=== PATIENT | male | born 1955 | race African-American/Black ===

== ENCOUNTER 2018-05-20 14:44 | Inpatient (IN) | payer OTHER ==
[2018-05-20 16:07] VITALS: BMI 21.2
--- NOTE | 2018-05-20 17:01 | HP ---
"CIWA Score Nausea/Vomitin-Mild Nausea/No Vomiting Muscle Tremors: 1-None Visible, but [place] Anxiety: 1-Mildly Anxious Agitation: 4-Moderately Restless Paroxysmal Sweats: 3 (Facial moisture) Orientation: 1-Uncertain about Date Tacttile Disturbances: 0-None Auditory Disturbances: 0-None Visual Disturbances: 0-None Headache: 0-None Present CIWA-Ar Total Score: 11 - Admission Criteria OASAS Guidelines: Admission for Medically Managed Detox: Requires at least one of the followin. CIWA greater than 12 2. Seizures within the past 24 hours 3. Delirium tremens within the past 24 hours 4. Hallucinations within the past 24 hours 5. Acute intervention needed for co occurring medical disorder 6. Acute intervention needed for co occurring psychiatric disorder 7. Severe withdrawal that cannot be handled at a lower level of care (continued vomiting, continued diarrhea, abnormal vital signs) requiring intravenous medication and/or fluids 8. Patient presents the following: Acute intervention needed for co-occurring med or psych disorder (Patient w/ B/P: 150/107 and HR: 106) Admission Criteria Met: Admission criteria met Admission ROS [facility] Chief Complaint: Here for alcohol withdrawal. Allergies/Adverse Reactions: Allergies Allergy/AdvReac Type Severity Reaction Status Date / Time No Known Allergies Allergy Verified 05/20/18 18:15 History of Present Illness: Here for alcohol detox. States I want to strop alcohol and cigarettes. States started drinking at age 14. Drinks approx 2 pints rum daily. last drink last night. States drinks 4 - 5 times/week. Nicotine use began at age 14. Currently 1/2 PPD. Denies other substance use. One blackout Apr, 2018 Denies hx seizures. Longest length of sobriety 1 month. Cough x 7 months. States phlegm - usually clear. Denies SOB. Hx: HIV infection. Denies medication management use for many months. Denies other significant PMH. States saw PCP 3 months ago and denies Hx HTN or heart issues. Search Terms: Jordin Sainz, 1955 Search Date: 05/20/2018 04:56:03 PM The Drug Utilization Report below displays all of the controlled substance prescriptions, if any, that your patient has filled in the last twelve months. The information displayed on this report is compiled from pharmacy submissions to the Department, and accurately reflects the information as submitted by the pharmacies. This report was requested by: Krystle Betts | Reference #: [id number] There are no results for the search terms that you entered. Exam Limitations: No Limitations - Ebola screening Have you traveled outside of the country in the last 21 days: No Have you had contact with anyone from an Ebola affected area: No Have you been sick,other than usual withdrawal symptoms: No Do you have a fever: No - Review of Systems Constitutional: Diaphoresis, Unexplained wgt Loss (Due to drinking instead of eating) EENT: reports: Blurred Vision (Reading glasses), Dental Problems (Missing teeth. Chews and swallos ok.) Respiratory: reports: SOB with Exertion (Climbing stairs.) Cardiac: reports: No Symptoms Reported GI: reports: Diarrhea (1 episoder earlier today.), Nausea, Indigestion (Occ acid reflux) : reports: No Symptoms Reported Musculoskeletal: reports: No Symptoms Reported Integumentary: reports: No Symptoms Reported Neuro: reports: Numbness (Numbness in fingers states r/t alcohol use) Endocrine: reports: Increased Thirst Hematology: reports: No Symptoms Reported Psychiatric: reports: Judgement Intact, Agitated, other (Unsure of day of week) Patient History - Patient Medical History Hx Anemia: No Hx Asthma: No Hx Chronic Obstructive Pulmonary Disease (COPD): No Hx Cancer: No Hx Cardiac Disorders: No Hx Congestive Heart Failure: No Hx Hypertension: No Hx Hypercholesterolemia: No Hx Pacemaker: No HX Cerebrovascular Accident: No Hx Seizures: No Hx Dementia: No Hx Diabetes: No Hx Gastrointestinal Disorders: No Hx Liver Disease: No Hx Genitourinary Disorders: No Hx Sexually Transmitted Disorders: No Hx Renal Disease (ESRD): No Hx Thyroid Disease: No Hx Human Immunodeficiency Virus (HIV): Yes Hx Hepatitis C: No Hx Depression: Yes Hx Suicide Attempt: No Hx Bipolar Disorder: No Hx Schizophrenia: No - Patient Surgical History Past Surgical History: No Hx Neurologic Surgery: No Hx Cataract Extraction: No Hx Cardiac Surgery: No Hx Lung Surgery: No Hx Breast Surgery: No Hx Breast Biopsy: No Hx Abdominal Surgery: No Hx Appendectomy: No Hx Cholecystectomy: No Hx Genitourinary Surgery: No Hx Section: No Hx Orthopedic Surgery: No Anesthesia Reaction: No - PPD History Previous Implant?: Yes Documented Results: Negative w/proof Implanted On Prior R Admission?: Yes Date: 01/16/15 PPD to be Administered?: Yes - Smoking Cessation Smoking history: Current every day smoker Have you smoked in the past 12 months: Yes Aproximately how many cigarettes per day: 10 Hx Chewing Tobacco Use: No Initiated information on smoking cessation: Yes 'Breaking Loose' booklet given: 05/20/18 - Substance & Tx. History Hx Alcohol Use: Yes Hx Substance Use: Yes Substance Use Type: Alcohol Hx Substance Use Treatment: Yes (detox, ) - Substances Abused Alcohol Route: Oral Frequency: Daily Amount used: 1 PINDelmi MUNOZ Age of first use: 14 Date of Last Use: 05/19/18 Admission Physical Exam BHS - Vital Signs Vital Signs: Vital Signs - 24 hr 05/20/18 16:00 Temperature 99.2 F Pulse Rate 106 H Respiratory 18 Rate Blood Pressure 150/107 H - Physical General Appearance: Yes: Appropriately Dressed, Mild Distress, Sweating (Facial moisture), Anxious HEENTM: Yes: EOMI, Hearing grossly Normal, Normal Voice, JIGNESH, Pharynx Normal Respiratory: Yes: Lungs Clear, Normal Breath Sounds, No Respiratory Distress, Other (Cough productive of greenish phlegm) Neck: Yes: No masses,lesions,Nodules, Supple Breast: Yes: Breast Exam Deferred Cardiology: Yes: Regular Rhythm, S1, S2 (Split S-2), Tachycardia Abdominal: Yes: Non Tender, Flat, Soft Genitourinary: Yes: Within Normal Limits Back: Yes: Normal Inspection Musculoskeletal: Yes: full range of Motion, Gait Steady Extremities: Yes: Normal Capillary Refill, Normal Range of Motion, Non-Tender, Tremors (Minimal tremors with arm extension) Neurological: Yes: business relations manager II-XII NML intact, Alert, Motor Strength 5/5, Normal Mood /Affect, Normal Response Integumentary: Yes: Normal Color, Dry (Generalized dry skin, except for facial moisture), Warm, Diaphoresis (Facial moisture) Lymphatic: Yes: Within Normal Limits - Diagnostic (1) Alcohol dependence with uncomplicated withdrawal Current Visit: Yes Status: Acute (2) HIV (human immunodeficiency virus infection) Current Visit: Yes Status: Chronic Qualifiers: HIV symptom status: unspecified Qualified Code(s): B20 - Human immunodeficiency virus [HIV] disease Comment: Not on medications (3) Nicotine dependence Current Visit: Yes Status: Chronic Qualifiers: Nicotine product type: cigarettes Substance use status: uncomplicated Qualified Code(s): F17.210 - Nicotine dependence, cigarettes, uncomplicated (4) Cough Current Visit: Yes Status: Chronic (5) Elevated blood pressure reading in office without diagnosis of hypertension Current Visit: Yes Status: Acute (6) Tachycardia Current Visit: Yes Status: Acute Cleared for Admission S - Detox or Rehab [facility] Level of Care: Medically Managed Detox Regimen/Protocol: Librium BHS Breath Alcohol Content Breath Alcohol Content: 0 Urine Drug Screen - Results Drug Screen Negative: Yes Inpatient Rehab Admission - Rehab Decision to Admit Inpatient rehab admission?: No"
[2018-05-20] MEDS ORDERED: ACETAMINOPHEN 325 MG TABLET (FP) PO PRN (17:33)
[2018-05-20] MEDS ORDERED: MENTHOL/PHENOL 1 EACH UD MM PRN (17:33)
[2018-05-20] MEDS ORDERED: MAG HYDROX/AL HYDROX/SIMETH 30 ML UNIT-DOSE CUP PO PRN (17:33)
[2018-05-20] MEDS ORDERED: LOPERAMIDE HCL 2 MG CAPSULE PO PRN (17:33)
[2018-05-20] MEDS ORDERED: IBUPROFEN 400 MG TABLET (FP) PO PRN (17:33)
[2018-05-20] MEDS ORDERED: MAGNESIUM CITRATE 300 ML BOTTLE PO PRN (17:33)
[2018-05-20] MEDS ORDERED: MAGNESIUM HYDROX 2400MG/30ML ORAL SUSPENSION 30 ML CUP PO PRN (17:33)
[2018-05-20] MEDS ORDERED: chlordiazePOXIDE HCL 25 MG CAPSULE PO PRN (17:33)
[2018-05-20] MEDS ORDERED: P-EPHED 60MG/TRIPROLIDI 2.5MG TABLET PO PRN (17:33)
[2018-05-20] MEDS ORDERED: chlordiazePOXIDE HCL 10 MG CAPSULE PO PRN (19:37)
[2018-05-20] MEDS: NICOTINE 14 MG/24 HOURS TOPICAL PATCH TD SCH (19:44)
[2018-05-20] MEDS: guaiFENesin 200 MG/10 ML 10 ML UNIT-DOSE CUPS PO SCH ×2 (19:50→23:07)
[2018-05-20] MEDS: chlordiazePOXIDE HCL 25 MG CAPSULE PO SCH (22:17)
[2018-05-20] MEDS: THIAMINE HCL 100 MG TABLET (FP) PO SCH (22:17)
[2018-05-20] MEDS: MELATONIN 5 MG TABLETS PO PRN (22:18)
[2018-05-21] MEDS: chlordiazePOXIDE HCL 25 MG CAPSULE PO SCH ×3 (05:53→17:28)
[2018-05-21] MEDS: guaiFENesin 200 MG/10 ML 10 ML UNIT-DOSE CUPS PO SCH ×4 (05:54→22:57)
[2018-05-21] MEDS: NICOTINE 14 MG/24 HOURS TOPICAL PATCH TD SCH (10:11)
[2018-05-21] MEDS: PRENATAL VITAMINS W/ FOLIC ACID TABLET (FP) PO SCH (10:12)
[2018-05-21 11:39] LABS: ALBUMIN 3.5 g/dl (3.4-5.0); ALK PHOS 97 U/L (45-117); ANION GAP 9 MMOL/L (8-16); BILIRUBIN,TOTAL 1.2 mg/dL (0.2-1); BLOOD UREA NITROGEN 8 mg/dL (7-18); CALCIUM 9.4 mg/dL (8.5-10.1); CHLORIDE 98 mmol/L (98-107); CO2 30 mmol/L (21-32); CREATININE 1.1 mg/dL (0.55-1.3); GLUCOSE,RANDOM 148 mg/dL (74-106); POTASSIUM 3.8 mmol/L (3.5-5.1); SGOT/AST 50 U/L (15-37); SGPT/ALT 41 U/L (13-61); SODIUM 137 mmol/L (136-145); TOT PROT 8.8 g/dl (6.4-8.2)
[2018-05-21 11:47] LABS: HEMATOCRIT 37.7 % (35.4-49); HEMOGLOBIN 12.7 GM/dL (11.7-16.9); MCH 29.6 pg (25.7-33.7); MCHC 33.7 g/dl (32.0-35.9); MEAN CELL VOLUME 87.8 fl (80-96); MEAN PLT VOLUME 7.4 fl (7.5-11.1); PLATELET COUNT 180 K/MM3 (134-434); RBC 4.29 M/mm3 (4.00-5.60); RDW 15.5 % (11.9-15.9); WHITE BLOOD COUNT 5.3 K/mm3 (4.0-10.0)
[2018-05-21] MEDS ORDERED: BACLOFEN 10 MG TABLET (FP) PO PRN ×2 (14:10→14:38)
--- NOTE | 2018-05-21 14:44 | EKG ---
Test Reason : Blood Pressure : / mmHG Vent. Rate : 100 BPM Atrial Rate : 100 BPM P-R Int : 132 ms QRS Dur : 082 ms QT Int : 344 ms P-R-T Axes : 077 026 076 degrees QTc Int : 443 ms POOR DATA QUALITY, INTERPRETATION MAY BE ADVERSELY AFFECTED NORMAL SINUS RHYTHM NORMAL ECG NO PREVIOUS ECGS AVAILABLE Confirmed by Gordon Lomas MD ([id number]) on 05/21/2018 2:44:02 PM Referred By: Confirmed By:Gordon Lomas MD
--- NOTE | 2018-05-21 15:07 | PN ---
S CIWA - CIWA Score Nausea/Vomitin Muscle Tremors: 2 Anxiety: 2 Agitation: 0-Normal Activity Paroxysmal Sweats: 3 Orientation: 0-Oriented Tacttile Disturbances: 2-Mild Itch/Numbness/Burn Auditory Disturbances: 0-None Visual Disturbances: 2-Mild Sensitivity Headache: 0-None Present CIWA-Ar Total Score: 14 BHS Progress Note (SOAP) Subjective: Nausea, Sweating, Body Aches, Muscle Cramps. Objective: PATIENT A & O X 3, OBSERVED AMBULATING ON UNIT. IN NO ACUTE DISTRESS. 05/21/18 15:07 Vital Signs Temperature 98.4 F 05/21/18 13:36 Pulse Rate 120 H 05/21/18 13:36 Respiratory Rate 18 05/21/18 13:36 Blood Pressure 106/74 05/21/18 13:36 O2 Sat by Pulse Oximetry (%) Laboratory Tests 05/21/18 05/21/18 05/21/18 07:40 07:40 07:40 WBC 5.3 RBC 4.29 Hgb 12.7 Hct 37.7 MCV 87.8 MCH 29.6 MCHC 33.7 RDW 15.5 Plt Count 180 MPV 7.4 L Sodium 137 Potassium 3.8 Chloride 98 Carbon Dioxide 30 Anion Gap 9 BUN 8 Creatinine 1.1 Creat Clearance w eGFR > 60 Random Glucose 148 H Calcium 9.4 Total Bilirubin 1.2 H AST 50 H ALT 41 Alkaline Phosphatase 97 Total Protein 8.8 H Albumin 3.5 RPR Titer Nonreactive LABS NOTED. Assessment: 05/21/18 15:08 WITHDRAWAL SYMPTOMS. Plan: CONTINUE DETOX. INCREASE DAILY PO FLUID INTAKE. PRN BACLOFEN PO FOR BODY ACHES / MUSCLE SPASMS. BGM ACBK FOR ELEVATED ADMISSION GLUCOSE LEVEL.
[2018-05-21] MEDS: chlordiazePOXIDE 5 MG CAPSULE PO SCH (22:40)
[2018-05-21] MEDS: THIAMINE HCL 100 MG TABLET (FP) PO SCH (22:40)
[2018-05-21] MEDS: MELATONIN 5 MG TABLETS PO PRN (22:41)
[2018-05-22] MEDS: chlordiazePOXIDE 5 MG CAPSULE PO SCH ×3 (06:03→17:24)
[2018-05-22] MEDS: guaiFENesin 200 MG/10 ML 10 ML UNIT-DOSE CUPS PO SCH ×4 (06:05→22:59)
[2018-05-22] MEDS: PRENATAL VITAMINS W/ FOLIC ACID TABLET (FP) PO SCH (10:06)
[2018-05-22] MEDS: NICOTINE 14 MG/24 HOURS TOPICAL PATCH TD SCH (10:07)
--- NOTE | 2018-05-22 11:39 | PN ---
S CIWA - CIWA Score Nausea/Vomitin-No Nausea/No Vomiting Muscle Tremors: 3 Anxiety: 1-Mildly Anxious Agitation: 2 Paroxysmal Sweats: 1-Minimal Palms Moist Orientation: 0-Oriented Tacttile Disturbances: 0-None Auditory Disturbances: 0-None Visual Disturbances: 0-None Headache: 2-Mild CIWA-Ar Total Score: 9 S Progress Note (SOAP) Subjective: tremor sweating restlessness Objective: 05/22/18 11:45 Vital Signs Temperature 98.7 F 05/22/18 09:33 Pulse Rate 109 H 05/22/18 09:33 Respiratory Rate 20 05/22/18 09:33 Blood Pressure 119/84 05/22/18 09:33 O2 Sat by Pulse Oximetry (%) Laboratory Last Values WBC 5.3 K/mm3 (4.0-10.0) 05/21/18 07:40 RBC 4.29 M/mm3 (4.00-5.60) 05/21/18 07:40 Hgb 12.7 GM/dL (11.7-16.9) 05/21/18 07:40 Hct 37.7 % (35.4-49) 05/21/18 07:40 MCV 87.8 fl (80-96) 05/21/18 07:40 MCH 29.6 pg (25.7-33.7) 05/21/18 07:40 MCHC 33.7 g/dl (32.0-35.9) 05/21/18 07:40 RDW 15.5 % (11.9-15.9) 05/21/18 07:40 Plt Count 180 K/MM3 (134-434) 05/21/18 07:40 MPV 7.4 fl (7.5-11.1) L 05/21/18 07:40 Sodium 137 mmol/L (136-145) 05/21/18 07:40 Potassium 3.8 mmol/L (3.5-5.1) 05/21/18 07:40 Chloride 98 mmol/L (98-107) 05/21/18 07:40 Carbon Dioxide 30 mmol/L (21-32) 05/21/18 07:40 Anion Gap 9 MMOL/L (8-16) 05/21/18 07:40 BUN 8 mg/dL (7-18) 05/21/18 07:40 Creatinine 1.1 mg/dL (0.55-1.3) 05/21/18 07:40 Creat Clearance w eGFR > 60 (>60) 05/21/18 07:40 POC Glucometer 121 UNITS (80-120) 05/22/18 06:26 Random Glucose 148 mg/dL (74-106) H 05/21/18 07:40 Calcium 9.4 mg/dL (8.5-10.1) 05/21/18 07:40 Total Bilirubin 1.2 mg/dL (0.2-1) H 05/21/18 07:40 AST 50 U/L (15-37) H 05/21/18 07:40 ALT 41 U/L (13-61) 05/21/18 07:40 Alkaline Phosphatase 97 U/L (45-117) 05/21/18 07:40 Total Protein 8.8 g/dl (6.4-8.2) H 05/21/18 07:40 Albumin 3.5 g/dl (3.4-5.0) 05/21/18 07:40 RPR Titer Nonreactive (NONREACTIVE) 05/21/18 07:40 lab noted Assessment: 05/22/18 11:46 withdrawal sx Plan: continue detox
[2018-05-22] MEDS: chlordiazePOXIDE HCL 10 MG CAPSULE PO SCH (22:17)
[2018-05-22] MEDS: THIAMINE HCL 100 MG TABLET (FP) PO SCH (22:17)
[2018-05-22] MEDS: MELATONIN 5 MG TABLETS PO PRN (22:18)
[2018-05-23] MEDS: chlordiazePOXIDE HCL 10 MG CAPSULE PO SCH ×3 (06:06→18:03)
[2018-05-23] MEDS: guaiFENesin 200 MG/10 ML 10 ML UNIT-DOSE CUPS PO SCH ×2 (06:33→12:47)
[2018-05-23] MEDS: PRENATAL VITAMINS W/ FOLIC ACID TABLET (FP) PO SCH (10:20)
[2018-05-23] MEDS: NICOTINE 14 MG/24 HOURS TOPICAL PATCH TD SCH (10:20)
--- NOTE | 2018-05-23 10:54 | PN ---
S CIWA - CIWA Score Nausea/Vomitin-Mild Nausea/No Vomiting Muscle Tremors: 1-None Visible, but [place] Anxiety: 1-Mildly Anxious Agitation: 1-Slight > Activity Paroxysmal Sweats: 1-Minimal Palms Moist Orientation: 0-Oriented Tacttile Disturbances: 0-None Auditory Disturbances: 0-None Visual Disturbances: 0-None Headache: 1-Very Mild CIWA-Ar Total Score: 6 BHS Progress Note (SOAP) Subjective: feeling better less tremor mild sweating sleep better at night Objective: 05/23/18 10:55 Vital Signs Temperature 98.8 F 05/23/18 09:33 Pulse Rate 120 H 05/23/18 09:33 Respiratory Rate 20 05/23/18 09:33 Blood Pressure 132/86 05/23/18 09:33 O2 Sat by Pulse Oximetry (%) Laboratory Last Values WBC 5.3 K/mm3 (4.0-10.0) 05/21/18 07:40 RBC 4.29 M/mm3 (4.00-5.60) 05/21/18 07:40 Hgb 12.7 GM/dL (11.7-16.9) 05/21/18 07:40 Hct 37.7 % (35.4-49) 05/21/18 07:40 MCV 87.8 fl (80-96) 05/21/18 07:40 MCH 29.6 pg (25.7-33.7) 05/21/18 07:40 MCHC 33.7 g/dl (32.0-35.9) 05/21/18 07:40 RDW 15.5 % (11.9-15.9) 05/21/18 07:40 Plt Count 180 K/MM3 (134-434) 05/21/18 07:40 MPV 7.4 fl (7.5-11.1) L 05/21/18 07:40 Sodium 137 mmol/L (136-145) 05/21/18 07:40 Potassium 3.8 mmol/L (3.5-5.1) 05/21/18 07:40 Chloride 98 mmol/L (98-107) 05/21/18 07:40 Carbon Dioxide 30 mmol/L (21-32) 05/21/18 07:40 Anion Gap 9 MMOL/L (8-16) 05/21/18 07:40 BUN 8 mg/dL (7-18) 05/21/18 07:40 Creatinine 1.1 mg/dL (0.55-1.3) 05/21/18 07:40 Creat Clearance w eGFR > 60 (>60) 05/21/18 07:40 POC Glucometer 98 UNITS (80-120) 05/23/18 06:05 Random Glucose 148 mg/dL (74-106) H 05/21/18 07:40 Calcium 9.4 mg/dL (8.5-10.1) 05/21/18 07:40 Total Bilirubin 1.2 mg/dL (0.2-1) H 05/21/18 07:40 AST 50 U/L (15-37) H 05/21/18 07:40 ALT 41 U/L (13-61) 05/21/18 07:40 Alkaline Phosphatase 97 U/L (45-117) 05/21/18 07:40 Total Protein 8.8 g/dl (6.4-8.2) H 05/21/18 07:40 Albumin 3.5 g/dl (3.4-5.0) 05/21/18 07:40 RPR Titer Nonreactive (NONREACTIVE) 05/21/18 07:40 lab noted Assessment: 05/23/18 10:55 mild withdrawal sx Plan: continue detox patient agrees to return to infectious disease specialist for medical mental issues
[2018-05-23] MEDS: THIAMINE HCL 100 MG TABLET (FP) PO SCH (22:22)
[2018-05-23] MEDS: chlordiazePOXIDE 5 MG CAPSULE PO SCH (22:23)
[2018-05-24] MEDS: chlordiazePOXIDE 5 MG CAPSULE PO SCH ×2 (05:35→10:49)
[2018-05-24 09:27] VITALS: BP 122/85; PULSE 110; TEMP 98.2
[2018-05-24] MEDS: PRENATAL VITAMINS W/ FOLIC ACID TABLET (FP) PO SCH (10:14)
[2018-05-24] MEDS: NICOTINE 14 MG/24 HOURS TOPICAL PATCH TD SCH (10:15)
--- NOTE | 2018-05-24 14:30 | DS ---
[facility] Detox Discharge Summary Admission Date: 05/20/18 Discharge Date: 05/24/18 - History Present History: Alcohol Dependence Additional Comments: 62 years old male admitted on 05/20/18 for alcohol withdrawal stabilization completed detox regimen after[facility] Pertinent Past History: encourage the patient to bring in ART for continuity of care - Physical Exam Results Vital Signs: Vital Signs Temperature 98.2 F 05/24/18 09:27 Pulse Rate 110 H 05/24/18 09:27 Respiratory Rate 18 05/24/18 09:27 Blood Pressure 122/85 05/24/18 09:27 O2 Sat by Pulse Oximetry (%) Pertinent Admission Physical Exam Findings: alcohol withdrawal sx Laboratory Last Values WBC 5.3 K/mm3 (4.0-10.0) 05/21/18 07:40 RBC 4.29 M/mm3 (4.00-5.60) 05/21/18 07:40 Hgb 12.7 GM/dL (11.7-16.9) 05/21/18 07:40 Hct 37.7 % (35.4-49) 05/21/18 07:40 MCV 87.8 fl (80-96) 05/21/18 07:40 MCH 29.6 pg (25.7-33.7) 05/21/18 07:40 MCHC 33.7 g/dl (32.0-35.9) 05/21/18 07:40 RDW 15.5 % (11.9-15.9) 05/21/18 07:40 Plt Count 180 K/MM3 (134-434) 05/21/18 07:40 MPV 7.4 fl (7.5-11.1) L 05/21/18 07:40 Sodium 137 mmol/L (136-145) 05/21/18 07:40 Potassium 3.8 mmol/L (3.5-5.1) 05/21/18 07:40 Chloride 98 mmol/L (98-107) 05/21/18 07:40 Carbon Dioxide 30 mmol/L (21-32) 05/21/18 07:40 Anion Gap 9 MMOL/L (8-16) 05/21/18 07:40 BUN 8 mg/dL (7-18) 05/21/18 07:40 Creatinine 1.1 mg/dL (0.55-1.3) 05/21/18 07:40 Creat Clearance w eGFR > 60 (>60) 05/21/18 07:40 POC Glucometer 121 UNITS (80-120) 05/24/18 07:22 Random Glucose 148 mg/dL (74-106) H 05/21/18 07:40 Calcium 9.4 mg/dL (8.5-10.1) 05/21/18 07:40 Total Bilirubin 1.2 mg/dL (0.2-1) H 05/21/18 07:40 AST 50 U/L (15-37) H 05/21/18 07:40 ALT 41 U/L (13-61) 05/21/18 07:40 Alkaline Phosphatase 97 U/L (45-117) 05/21/18 07:40 Total Protein 8.8 g/dl (6.4-8.2) H 05/21/18 07:40 Albumin 3.5 g/dl (3.4-5.0) 05/21/18 07:40 RPR Titer Nonreactive (NONREACTIVE) 05/21/18 07:40 lab noted - Treatment Hospital Course: Detox Protocol Followed, Detoxed Safely, Responded well, Discharged Condition Good, Rehab Referral Accepted - Medication Discharge Medications: Ambulatory Orders Atazanavir [Reyataz -] 300 mg PO DAILY 04/25/14 Emtricitabine/Tenofovir [Truvada -] 1 tab PO DAILY 04/25/14 Ritonavir [Norvir -] 100 mg PO DAILY 04/25/14 Sulfamethoxazole/Trimethoprim [Bactrim DS -] 1 tab PO DAILY #14 tablet 05/23/18 - Diagnosis (1) AIDS (acquired immune deficiency syndrome) Status: Chronic (2) Alcohol dependence with uncomplicated withdrawal Status: Acute (3) Nicotine dependence Status: Acute Qualifiers: Nicotine product type: cigarettes Substance use status: in withdrawal Qualified Code(s): F17.213 - Nicotine dependence, cigarettes, with withdrawal - AMA Did Patient Leave Against Medical Advice: No
== END 2018-05-24 12:55 | disposition other institution (70) | DRG 897 ==
LOC: YASAS 14:44 → Y3N 18:02
PROVIDERS: ADMIT Surgery; ATTEND Surgery
PROC: HZ2ZZZZ Detoxification Services for Substance Abuse Treatment (ICD-10-PCS; principal; 2018-05-20)
DX: F10.230 Alcohol dependence with withdrawal, uncomplicated (principal); B20 Human immunodeficiency virus [HIV] disease; F17.213 Nicotine dependence, cigarettes, with withdrawal; R00.0 Tachycardia, unspecified; R05 Cough; R03.0 Elevated blood-pressure reading, without diagnosis of hypertension
CPT/HCPCS: 36415; 80053; 82962; 85027; 86593; 93005; 93010

== ENCOUNTER 2018-05-24 13:19 | Inpatient (IN) | payer OTHER ==
[2018-05-24] MEDS ORDERED: ACETAMINOPHEN 325 MG TABLET (FP) PO PRN (14:20)
[2018-05-24] MEDS ORDERED: IBUPROFEN 400 MG TABLET (FP) PO PRN (14:20)
[2018-05-24] MEDS ORDERED: LOPERAMIDE HCL 2 MG CAPSULE PO PRN (14:20)
[2018-05-24] MEDS ORDERED: MAG HYDROX/AL HYDROX/SIMETH 30 ML UNIT-DOSE CUP PO PRN (14:20)
[2018-05-24] MEDS ORDERED: MAGNESIUM CITRATE 300 ML BOTTLE PO PRN (14:20)
[2018-05-24] MEDS ORDERED: MAGNESIUM HYDROX 2400MG/30ML ORAL SUSPENSION 30 ML CUP PO PRN (14:20)
--- NOTE | 2018-05-24 14:20 | HP ---
NEELIMA LOMELI Rehab Assess/Revision - Admission History Admitted to Rehab from: [facility] Date of Admission to Rehab: 05/24/18 - Vital signs Vital Signs: Vital Signs Period Temp Pulse Resp BP Sys/Palmer Pulse Ox Last 24 Hr 98.2 F 108 18 121/85 - Findings Detox History & Physical reviewed: Yes Concur with findings: Yes Comments/Additional Findings: transferred from detox to rehab admission as per protocol Inpatient Rehab Admission - Rehab Decision to Admit Inpatient rehab admission?: Yes - Initial Determination Are CD services needed?: Yes Free of communicable disease: Yes Not in need of hospitalization: Yes - Rehab Admission Criteria Previous failed treatment: Yes Poor recovery environment: Yes Comorbidities: Yes Lacks judgement: No Patient is meeting Inpatient Rehab admission criteria:: Yes
[2018-05-24] MEDS ORDERED: NICOTINE POLACRILEX 2 MG GUM BUC PRN (14:32)
[2018-05-24] MEDS: THIAMINE HCL 100 MG TABLET (FP) PO SCH (21:31)
[2018-05-25] MEDS: MENTHOL/PHENOL 1 EACH UD MM PRN ×2 (06:02→14:27)
[2018-05-25] MEDS: guaiFENesin/D-METHORPHAN HB 10 ML UNIT-DOSE CUPS PO PRN ×2 (06:02→14:27)
[2018-05-25] MEDS: NICOTINE 14 MG/24 HOURS TOPICAL PATCH TD SCH (09:46)
[2018-05-25] MEDS: PRENATAL VITAMINS W/ FOLIC ACID TABLET (FP) PO SCH (09:46)
[2018-05-25] MEDS: SULFAMETHOXAZOLE/TRIMETHOPRIM 800MG/160MG D.S. TABLET PO SCH (09:47)
--- NOTE | 2018-05-25 10:09 | PN ---
[facility] Progress Note Note: PATIENT SEEN FOR C/O NON-PRODUCTIVE COUGH AND SORE THROAT. PATIENT HAS H/O TOBACCO USE AND HIV (NON COMPLIANT WITH TREATMENT). PATIENT DENIES CP, SOB AND DIZZINESS. Vital Signs Temperature 97.9 F 05/25/18 06:51 Pulse Rate 91 H 05/25/18 06:51 Respiratory Rate 18 05/25/18 06:51 Blood Pressure 147/90 05/25/18 06:51 O2 Sat by Pulse Oximetry (%) PE: ALERT AND ORIENTED X 3 SKIN WARM AND DRY THROAT/MOUTH: + TOOTH DECAY, + YELLOW PLAQUES ON TONGUE AND PHARYNX CAR S1S2 RESP FAINT WHEEZES RIGHT POSTERIOR UPPER LOBE EXT FULL ROM AMB AD ARTUR A/P: THRUSH WHEEZING COUGH WILL START NYSTATIN S/S ADD ALBUTEROL INH CONTINUE ROBITUSSIN AND CEPASTAT PRN CONTINUE TO MONITOR CLINICALLY
[2018-05-25] MEDS ORDERED: PNEUMOC 13-VAL CONJ-DIP CRM/PF 0.5 ML DISP.SYRIN IM ONE (12:00)
[2018-05-25] MEDS: NYSTATIN 500,000 UNITS/5 ML SUSPENSION PO SCH ×2 (13:15→17:26)
[2018-05-25] MEDS: ALBUTEROL SO4 8 GM HFA INHALER IH PRN ×2 (14:26→21:15)
[2018-05-25] MEDS: THIAMINE HCL 100 MG TABLET (FP) PO SCH (21:15)
[2018-05-25] MEDS: MELATONIN 5 MG TABLETS PO PRN (21:15)
[2018-05-26] MEDS: NYSTATIN 500,000 UNITS/5 ML SUSPENSION PO SCH ×4 (01:15→17:01)
[2018-05-26] MEDS: PRENATAL VITAMINS W/ FOLIC ACID TABLET (FP) PO SCH (10:05)
[2018-05-26] MEDS: NICOTINE 14 MG/24 HOURS TOPICAL PATCH TD SCH (10:05)
[2018-05-26] MEDS: SULFAMETHOXAZOLE/TRIMETHOPRIM 800MG/160MG D.S. TABLET PO SCH (10:05)
[2018-05-26] MEDS: MENTHOL/PHENOL 1 EACH UD MM PRN (10:08)
--- NOTE | 2018-05-26 10:15 | PN ---
S Progress Note Note: LABS REVIEWED WITH PATIENT. UA + PROTEIN +1. WILL REPEAT UA AND ENCOURAGE ORAL FLUIDS. Vital Signs Temperature 97.8 F 05/26/18 06:51 Pulse Rate 81 05/26/18 06:51 Respiratory Rate 18 05/26/18 06:51 Blood Pressure 141/79 05/26/18 06:51 O2 Sat by Pulse Oximetry (%)
[2018-05-26] MEDS: guaiFENesin/D-METHORPHAN HB 10 ML UNIT-DOSE CUPS PO PRN (10:21)
[2018-05-26] MEDS: THIAMINE HCL 100 MG TABLET (FP) PO SCH (21:25)
[2018-05-27] MEDS: NYSTATIN 500,000 UNITS/5 ML SUSPENSION PO SCH ×4 (05:53→21:50)
[2018-05-27] MEDS: ALBUTEROL SO4 8 GM HFA INHALER IH PRN ×2 (06:59→21:35)
[2018-05-27] MEDS: MENTHOL/PHENOL 1 EACH UD MM PRN ×2 (07:00→22:04)
[2018-05-27] MEDS: guaiFENesin/D-METHORPHAN HB 10 ML UNIT-DOSE CUPS PO PRN ×2 (07:00→22:03)
[2018-05-27] MEDS: PRENATAL VITAMINS W/ FOLIC ACID TABLET (FP) PO SCH (10:11)
[2018-05-27] MEDS: SULFAMETHOXAZOLE/TRIMETHOPRIM 800MG/160MG D.S. TABLET PO SCH (10:11)
[2018-05-27] MEDS: NICOTINE 14 MG/24 HOURS TOPICAL PATCH TD SCH (10:12)
[2018-05-27 16:27] LABS: URINE APPEARANCE CLEAR; URINE BILIRUBIN NEGATIVE (<2.0 mg/dL); URINE COLOR LTYELLOW; URINE GLUCOSE (UA) NEGATIVE (NEGATIVE); URINE KETONE NEGATIVE (NEGATIVE); URINE LEUK ESTERASE NEGATIVE (NEGATIVE); URINE NITRITE NEGATIVE (NEGATIVE); URINE PROTEIN NEGATIVE (NEGATIVE); URINE UROBILINOGEN NEGATIVE mg/dL (0.2-1.0)
[2018-05-27] MEDS: THIAMINE HCL 100 MG TABLET (FP) PO SCH (21:34)
[2018-05-27] MEDS: MELATONIN 5 MG TABLETS PO PRN (21:34)
[2018-05-28] MEDS: NYSTATIN 500,000 UNITS/5 ML SUSPENSION PO SCH ×5 (00:18→23:07)
[2018-05-28] MEDS: PRENATAL VITAMINS W/ FOLIC ACID TABLET (FP) PO SCH (09:48)
[2018-05-28] MEDS: NICOTINE 14 MG/24 HOURS TOPICAL PATCH TD SCH (09:48)
[2018-05-28] MEDS: SULFAMETHOXAZOLE/TRIMETHOPRIM 800MG/160MG D.S. TABLET PO SCH (09:48)
[2018-05-28] MEDS: P-EPHED 60MG/TRIPROLIDI 2.5MG TABLET PO PRN (17:02)
[2018-05-28] MEDS: THIAMINE HCL 100 MG TABLET (FP) PO SCH (21:36)
[2018-05-29] MEDS: NYSTATIN 500,000 UNITS/5 ML SUSPENSION PO SCH ×4 (06:32→23:15)
[2018-05-29] MEDS: NICOTINE 14 MG/24 HOURS TOPICAL PATCH TD SCH (09:52)
[2018-05-29] MEDS: PRENATAL VITAMINS W/ FOLIC ACID TABLET (FP) PO SCH (09:52)
[2018-05-29] MEDS: SULFAMETHOXAZOLE/TRIMETHOPRIM 800MG/160MG D.S. TABLET PO SCH (09:52)
[2018-05-29] MEDS: guaiFENesin/D-METHORPHAN HB 10 ML UNIT-DOSE CUPS PO PRN ×2 (13:29→21:33)
[2018-05-29] MEDS: MENTHOL/PHENOL 1 EACH UD MM PRN (13:29)
[2018-05-29] MEDS: THIAMINE HCL 100 MG TABLET (FP) PO SCH (21:31)
[2018-05-29] MEDS: ALBUTEROL SO4 8 GM HFA INHALER IH PRN (21:32)
[2018-05-30] MEDS: NYSTATIN 500,000 UNITS/5 ML SUSPENSION PO SCH ×4 (06:19→23:49)
[2018-05-30] MEDS: SULFAMETHOXAZOLE/TRIMETHOPRIM 800MG/160MG D.S. TABLET PO SCH (10:01)
[2018-05-30] MEDS: PRENATAL VITAMINS W/ FOLIC ACID TABLET (FP) PO SCH (10:01)
[2018-05-30] MEDS: NICOTINE 14 MG/24 HOURS TOPICAL PATCH TD SCH (10:01)
[2018-05-30] MEDS: MENTHOL/PHENOL 1 EACH UD MM PRN ×3 (13:06→21:31)
[2018-05-30] MEDS: guaiFENesin/D-METHORPHAN HB 10 ML UNIT-DOSE CUPS PO PRN (18:07)
[2018-05-30] MEDS: THIAMINE HCL 100 MG TABLET (FP) PO SCH (21:30)
[2018-05-31] MEDS: NYSTATIN 500,000 UNITS/5 ML SUSPENSION PO SCH ×4 (06:30→23:14)
[2018-05-31] MEDS: PRENATAL VITAMINS W/ FOLIC ACID TABLET (FP) PO SCH (10:12)
[2018-05-31] MEDS: NICOTINE 14 MG/24 HOURS TOPICAL PATCH TD SCH (10:12)
[2018-05-31] MEDS: SULFAMETHOXAZOLE/TRIMETHOPRIM 800MG/160MG D.S. TABLET PO SCH (10:12)
[2018-05-31] MEDS: ALBUTEROL SO4 8 GM HFA INHALER IH PRN (10:13)
[2018-05-31] MEDS: MENTHOL/PHENOL 1 EACH UD MM PRN (19:23)
[2018-05-31] MEDS: THIAMINE HCL 100 MG TABLET (FP) PO SCH (21:33)
[2018-06-01] MEDS: NYSTATIN 500,000 UNITS/5 ML SUSPENSION PO SCH ×4 (06:01→19:00)
[2018-06-01] MEDS: PRENATAL VITAMINS W/ FOLIC ACID TABLET (FP) PO SCH (10:29)
[2018-06-01] MEDS: SULFAMETHOXAZOLE/TRIMETHOPRIM 800MG/160MG D.S. TABLET PO SCH (10:29)
[2018-06-01] MEDS: NICOTINE 14 MG/24 HOURS TOPICAL PATCH TD SCH (10:29)
[2018-06-01] MEDS: THIAMINE HCL 100 MG TABLET (FP) PO SCH (21:19)
[2018-06-02] MEDS: NYSTATIN 500,000 UNITS/5 ML SUSPENSION PO SCH ×4 (06:01→23:03)
[2018-06-02] MEDS: NICOTINE 14 MG/24 HOURS TOPICAL PATCH TD SCH (10:13)
[2018-06-02] MEDS: PRENATAL VITAMINS W/ FOLIC ACID TABLET (FP) PO SCH (10:13)
[2018-06-02] MEDS: SULFAMETHOXAZOLE/TRIMETHOPRIM 800MG/160MG D.S. TABLET PO SCH (10:13)
[2018-06-02] MEDS: guaiFENesin/D-METHORPHAN HB 10 ML UNIT-DOSE CUPS PO PRN (10:15)
[2018-06-02] MEDS: MENTHOL/PHENOL 1 EACH UD MM PRN (16:46)
[2018-06-02] MEDS: THIAMINE HCL 100 MG TABLET (FP) PO SCH (21:32)
[2018-06-03] MEDS: NYSTATIN 500,000 UNITS/5 ML SUSPENSION PO SCH ×4 (06:15→23:27)
[2018-06-03] MEDS: NICOTINE 14 MG/24 HOURS TOPICAL PATCH TD SCH (09:58)
[2018-06-03] MEDS: SULFAMETHOXAZOLE/TRIMETHOPRIM 800MG/160MG D.S. TABLET PO SCH (09:58)
[2018-06-03] MEDS: PRENATAL VITAMINS W/ FOLIC ACID TABLET (FP) PO SCH (09:58)
[2018-06-03] MEDS: THIAMINE HCL 100 MG TABLET (FP) PO SCH (21:43)
[2018-06-03] MEDS: MELATONIN 5 MG TABLETS PO PRN (21:43)
[2018-06-04] MEDS: NYSTATIN 500,000 UNITS/5 ML SUSPENSION PO SCH ×4 (07:01→23:13)
[2018-06-04] MEDS: PRENATAL VITAMINS W/ FOLIC ACID TABLET (FP) PO SCH (10:07)
[2018-06-04] MEDS: NICOTINE 14 MG/24 HOURS TOPICAL PATCH TD SCH (10:07)
[2018-06-04] MEDS: SULFAMETHOXAZOLE/TRIMETHOPRIM 800MG/160MG D.S. TABLET PO SCH (10:07)
[2018-06-04] MEDS: MENTHOL/PHENOL 1 EACH UD MM PRN (13:09)
[2018-06-04] MEDS: THIAMINE HCL 100 MG TABLET (FP) PO SCH (21:51)
[2018-06-04] MEDS: guaiFENesin/D-METHORPHAN HB 10 ML UNIT-DOSE CUPS PO PRN (21:51)
[2018-06-05] MEDS: NYSTATIN 500,000 UNITS/5 ML SUSPENSION PO SCH ×4 (06:22→23:07)
[2018-06-05] MEDS: SULFAMETHOXAZOLE/TRIMETHOPRIM 800MG/160MG D.S. TABLET PO SCH (09:29)
[2018-06-05] MEDS: PRENATAL VITAMINS W/ FOLIC ACID TABLET (FP) PO SCH (09:29)
[2018-06-05] MEDS: NICOTINE 14 MG/24 HOURS TOPICAL PATCH TD SCH (09:29)
[2018-06-05] MEDS: THIAMINE HCL 100 MG TABLET (FP) PO SCH (21:34)
[2018-06-06] MEDS: NYSTATIN 500,000 UNITS/5 ML SUSPENSION PO SCH ×4 (05:56→23:30)
[2018-06-06] MEDS: NICOTINE 14 MG/24 HOURS TOPICAL PATCH TD SCH (10:26)
[2018-06-06] MEDS: PRENATAL VITAMINS W/ FOLIC ACID TABLET (FP) PO SCH (10:26)
[2018-06-06] MEDS: SULFAMETHOXAZOLE/TRIMETHOPRIM 800MG/160MG D.S. TABLET PO SCH (10:26)
[2018-06-06] MEDS: MELATONIN 5 MG TABLETS PO PRN (21:35)
[2018-06-06] MEDS: THIAMINE HCL 100 MG TABLET (FP) PO SCH (21:35)
[2018-06-07] MEDS: NYSTATIN 500,000 UNITS/5 ML SUSPENSION PO SCH ×4 (06:29→23:02)
[2018-06-07] MEDS: PRENATAL VITAMINS W/ FOLIC ACID TABLET (FP) PO SCH (10:18)
[2018-06-07] MEDS: NICOTINE 14 MG/24 HOURS TOPICAL PATCH TD SCH (10:18)
[2018-06-07] MEDS: SULFAMETHOXAZOLE/TRIMETHOPRIM 800MG/160MG D.S. TABLET PO SCH (10:18)
[2018-06-07] MEDS: THIAMINE HCL 100 MG TABLET (FP) PO SCH (21:23)
[2018-06-07] MEDS: MELATONIN 5 MG TABLETS PO PRN (21:23)
[2018-06-08] MEDS: NYSTATIN 500,000 UNITS/5 ML SUSPENSION PO SCH ×4 (05:41→23:13)
[2018-06-08] MEDS: PRENATAL VITAMINS W/ FOLIC ACID TABLET (FP) PO SCH (10:03)
[2018-06-08] MEDS: NICOTINE 14 MG/24 HOURS TOPICAL PATCH TD SCH (10:03)
[2018-06-08] MEDS: SULFAMETHOXAZOLE/TRIMETHOPRIM 800MG/160MG D.S. TABLET PO SCH (10:03)
[2018-06-08] MEDS: THIAMINE HCL 100 MG TABLET (FP) PO SCH (21:29)
[2018-06-08] MEDS: MELATONIN 5 MG TABLETS PO PRN (21:29)
[2018-06-09] MEDS: NYSTATIN 500,000 UNITS/5 ML SUSPENSION PO SCH ×4 (06:07→23:09)
[2018-06-09] MEDS: NICOTINE 14 MG/24 HOURS TOPICAL PATCH TD SCH (09:58)
[2018-06-09] MEDS: PRENATAL VITAMINS W/ FOLIC ACID TABLET (FP) PO SCH (09:58)
[2018-06-09] MEDS: SULFAMETHOXAZOLE/TRIMETHOPRIM 800MG/160MG D.S. TABLET PO SCH (09:58)
[2018-06-09] MEDS: THIAMINE HCL 100 MG TABLET (FP) PO SCH (21:19)
[2018-06-10] MEDS: NYSTATIN 500,000 UNITS/5 ML SUSPENSION PO SCH ×4 (06:36→23:05)
[2018-06-10] MEDS: PRENATAL VITAMINS W/ FOLIC ACID TABLET (FP) PO SCH (10:23)
[2018-06-10] MEDS: SULFAMETHOXAZOLE/TRIMETHOPRIM 800MG/160MG D.S. TABLET PO SCH (10:23)
[2018-06-10] MEDS: NICOTINE 14 MG/24 HOURS TOPICAL PATCH TD SCH (10:23)
[2018-06-10] MEDS ORDERED: PT OWN MED DRAWER 7, Y5N ONE (11:40)
[2018-06-10] MEDS: MELATONIN 5 MG TABLETS PO PRN (21:39)
[2018-06-10] MEDS: THIAMINE HCL 100 MG TABLET (FP) PO SCH (21:39)
[2018-06-10] MEDS: P-EPHED 60MG/TRIPROLIDI 2.5MG TABLET PO PRN (21:40)
[2018-06-11] MEDS: NYSTATIN 500,000 UNITS/5 ML SUSPENSION PO SCH ×4 (06:46→23:29)
[2018-06-11] MEDS: SULFAMETHOXAZOLE/TRIMETHOPRIM 800MG/160MG D.S. TABLET PO SCH (09:55)
[2018-06-11] MEDS: NICOTINE 14 MG/24 HOURS TOPICAL PATCH TD SCH (09:55)
[2018-06-11] MEDS: PRENATAL VITAMINS W/ FOLIC ACID TABLET (FP) PO SCH (09:55)
[2018-06-11] MEDS: THIAMINE HCL 100 MG TABLET (FP) PO SCH (21:36)
[2018-06-12] MEDS: NYSTATIN 500,000 UNITS/5 ML SUSPENSION PO SCH ×4 (06:42→23:50)
[2018-06-12] MEDS: PRENATAL VITAMINS W/ FOLIC ACID TABLET (FP) PO SCH (10:10)
[2018-06-12] MEDS: NICOTINE 14 MG/24 HOURS TOPICAL PATCH TD SCH (10:10)
[2018-06-12] MEDS: SULFAMETHOXAZOLE/TRIMETHOPRIM 800MG/160MG D.S. TABLET PO SCH (10:10)
[2018-06-12] MEDS: MELATONIN 5 MG TABLETS PO PRN (21:12)
[2018-06-12] MEDS: THIAMINE HCL 100 MG TABLET (FP) PO SCH (21:12)
[2018-06-13] MEDS: NYSTATIN 500,000 UNITS/5 ML SUSPENSION PO SCH ×4 (06:26→23:15)
[2018-06-13] MEDS: PRENATAL VITAMINS W/ FOLIC ACID TABLET (FP) PO SCH (10:24)
[2018-06-13] MEDS: NICOTINE 14 MG/24 HOURS TOPICAL PATCH TD SCH (10:25)
[2018-06-13] MEDS: SULFAMETHOXAZOLE/TRIMETHOPRIM 800MG/160MG D.S. TABLET PO SCH (10:59)
[2018-06-13] MEDS: THIAMINE HCL 100 MG TABLET (FP) PO SCH (21:51)
[2018-06-13] MEDS: MELATONIN 5 MG TABLETS PO PRN (21:51)
[2018-06-14] MEDS: NYSTATIN 500,000 UNITS/5 ML SUSPENSION PO SCH (07:05)
[2018-06-14 07:33] VITALS: BP 130/74; PULSE 90; TEMP 97.9
--- NOTE | 2018-06-14 09:41 | PN ---
[facility] Progress Note (SOAP) Subjective: Client for discharge today Objective: 06/14/18 09:37 No complaints; aware of d/c plan. Assessment: 06/14/18 09:37 Alert an oriented; Plan: Client to be discharged today. Receiving after care at [facility] Primary Care Provider: Ashly Arredondo- An HIV specialist. States will get a PCP when d/c. Encouraged to f/u w/ HIV specialist. Last HIV viral load 6 months ago. On Bactrim, which will be renewed.
[2018-06-14] MEDS ORDERED: PATIENT'S OWN MEDICATION (NON-FORMULARY) (Emtricitabine/Tenofovir [Truvada -] 1 TAB) PO SCH (10:00)
[2018-06-14] MEDS ORDERED: PATIENT'S OWN MEDICATION (NON-FORMULARY) (Ritonavir [Norvir -] 100 MG) PO SCH (10:00)
[2018-06-14] MEDS ORDERED: PATIENT'S OWN MEDICATION (NON-FORMULARY) (Atazanavir [Reyataz -] 300 MG) PO SCH (10:00)
[2018-06-14] MEDS: PRENATAL VITAMINS W/ FOLIC ACID TABLET (FP) PO SCH (10:18)
[2018-06-14] MEDS: SULFAMETHOXAZOLE/TRIMETHOPRIM 800MG/160MG D.S. TABLET PO SCH (10:18)
[2018-06-14] MEDS: NICOTINE 14 MG/24 HOURS TOPICAL PATCH TD SCH (10:18)
== END 2018-06-14 10:25 | disposition home or self-care (01) | DRG 895 ==
LOC: YASAS 13:19 → Y3W 13:20
PROVIDERS: ADMIT Neuromusculoskeletal Medicine & OMM; ATTEND Neuromusculoskeletal Medicine & OMM
PROC: HZ42ZZZ Group Counseling for Substance Abuse Treatment, Cognitive-Behavioral (ICD-10-PCS; principal; 2018-05-24)
DX: F10.20 Alcohol dependence, uncomplicated (principal); B20 Human immunodeficiency virus [HIV] disease; B37.0 Candidal stomatitis; F17.210 Nicotine dependence, cigarettes, uncomplicated; R06.2 Wheezing; R05 Cough; R03.0 Elevated blood-pressure reading, without diagnosis of hypertension; R00.0 Tachycardia, unspecified
CPT/HCPCS: 81003; 82962